=== PATIENT | male | born 1980 | race Caucasian/White ===

== ENCOUNTER 2016-09-15 17:51 | Emergency (ER) | payer OTHER ==
[~2016-09-15] VITALS: Ht 185.4 cm; Wt 81.8 kg
[2016-09-15 18:02] VITALS: BP 114/77; PULSE 72; RESP 16; O2SAT 99
--- NOTE | 2016-09-15 18:10 | ED.REPORT ---
HPI-Extremity Problem Lower Date of Service Sep 15, 2016 ED Provider: Dr. Julián Chavez The patient is a 37 year old male who presents to the ED after a right knee injury at work today. The patient was carrying a case of beer when he felt his right knee twist in the opposite direction, he collapsed and found himself on the ground with the right patella laterally dislocated. Patient did not lose consciousness . He has had increasing pain and swelling since the accident and cannot bear weight on the leg. He took 600 mg Motrin at 1700 today. The patient is a poor historian. Nursing Notes Stated Complaint: RIGHT KNEECAP PAIN Chief Complaint: Extremity Trauma Nursing Notes Reviewed: Yes Allergies: Coded Allergies: No Known Allergies (Unverified , 02/11/16) No Active Prescriptions or Reported Meds General Time Seen by MD: 18:09 Chief Complaint Knee injury right Hx Obtained From: Patient Arrived By: Walk-in Onset Occurred: Just prior to arrival Symptom Duration: Since onset Caused by: Accidental Context: Occurred at: Workplace Location: : Knee right Quality: Painful Severity: Current: Moderate Severity: Maximum: Severe Recent Healthcare: No recent doctor visit, No recent hospitalization Similar Sx Previous: No Past Medical History Past Medical History Drug abuse Past Surgical History Denies Social History Smokes heroin Drug Use: THC Other Social History: Good social support, Local resident Ambulatory Status Independent Review of Systems Musculoskeletal: Reports: Joint pain (right knee), Joint swelling (right knee) Neurologic: Denies: Change LOC, Confusion, Dizziness, Headache, Lightheaded, Syncope, Weakness Complete sys rev & neg: except as marked. Physical Exam Initial Vital Signs Vital Signs (First) Date Time Temp Pulse Resp B/P Pulse Ox O2 Delivery O2 Flow Rate FiO2 09/15/16 18:02 36.7 72 16 114/77 99 Room Air Initial VS: Reviewed Right Knee: Positive: Swelling present... tender along lateral portion of patella patient was not able to weight bear tender along medial joint line alignment of overall lower extremity was normal after fall pulses intact no palpable effusions no swelling no deformity Ankle / Foot: Inspection NL, No deformity General/Constitutional: Awake, Alert, Cooperative, Not toxic appearing Skin: Atraumatic, Warm, Dry Neurologic: Oriented X3, Speech NL Head / Eyes: Normocephalic, PERRL, EOMI Neck: Atraumatic, Supple, Non-tender Upper Extremity / MS: Atraumatic, Full range of motion, No deformity Wrist / Hand: Atraumatic, Inspection NL, No deformity Interpretation & Diagnostics X-Ray Interpretation Xray Interpretation: RIGHT KNEE IMPRESSION: Changes consistent with history of patellar dislocation with small fragments of medial patellar facet fractured off and loose in the suprapatellar region of the knee joint. Dictated by: Saad Momin M.D. on 09/15/2016 at 18:58 Approved by: Saad Momin M.D. on 09/15/2016 at 18:59 X-Ray Ordered: Knee right Interpretation / Wet Read by: Interpret - Radiologist Re-Eval/Medical Decision Counseled Regarding: Diagnosis, Lab results, Need for follow-up, When/why to return to ED Discharge & Departure Impression: Primary Impression: Patellar dislocation Encounter type: initial encounter Laterality: right Qualified Code: S83.004A - Unspecified dislocation of right patella, initial encounter Disposition: Home Discharge Condition All VS Reviewed: Yes Condition: Stable Patient Instructions: Patellar Dislocation (ED), Crutch Instructions (ED) Additional Instructions: Thank you for entrusting us with your care today. Emergency Department evaluation included interview, examination, and leg x-ray. You have dislocated your patella. Use Tylenol and Ibuprofen as needed for pain and apply cold packs to help with swelling. Use the knee immobilizer and crutches as instructed. Only weight bear on the leg as tolerated. Follow up with the orthopedist. Return to the Emergency Department if you experience any new or worsening symptoms. I hope you feel better soon! Referrals: [facility] (PCP) [facility] Demetris Fisher MD Attestation Portion of this note were transcribed by Fiorella Bah. I, Dr. Chavez, personally performed the history, physical exam, and medical decision-making: I reviewed and confirmed the accuracy for the information in the transcribed note. Signed by: carolina Marie, 09/15/161999 copies to: [facility]; Demetris Fisher MD, Donald L MD Sep 15, 2016 18:10 Fiorella Bah Sep 15, 2016 18:20
--- NOTE | 2016-09-15 19:01 | DRSVH ---
PROCEDURE: X-RAY RIGHT KNEE, THREE VIEWS ([id number]) INDICATIONS: r knee pain, H/O patellar dislocation TECHNIQUE: 3 views of the knee were acquired. COMPARISON: None. FINDINGS: Bones: There are irregularities of the cortex of the medial aspect of the patella seen in the sunris e view indicating small fragments of bone have been removed. These are seen in the lateral view of th e knee in the suprapatellar fossa along with a joint effusion. The lateral femoral condyle shows no a bnormality on these films. Soft tissues: No joint effusion. No suspicious soft tissue calcifications. IMPRESSION: Changes consistent with history of patellar dislocation with small fragments of medial pa tellar facet fractured off and loose in the suprapatellar region of the knee joint. Dictated by: Saad Momin M.D. on 09/15/2016 at 18:58 Approved by: Saad Momin M.D. on 09/15/2016 at 18:59
[2016-09-15 19:44] VITALS: BP 110/69; PULSE 61; RESP 16; O2SAT 99
== END 2016-09-15 19:45 | disposition home or self-care (01) ==
LOC: SED 17:51
DX: S83.004A Unspecified dislocation of right patella, initial encounter (principal); X50.1XXA Overexertion from prolonged static or awkward postures, initial encounter; Y92.59 Other trade areas as the place of occurrence of the external cause; Y93.89 Activity, other specified; Y99.0 Civilian activity done for income or pay